=== PATIENT | female | born 1965 ===

== ENCOUNTER 2019-05-19 08:41 | Emergency (ER) | payer OTHER ==
[~2019-05-19] VITALS: Ht 165.1 cm; Wt 74.8 kg
[2019-05-19 09:55] LABS: Influenza A Negative (NEGATIVE); Influenza B Negative (NEGATIVE)
[2019-05-19] MEDS ORDERED: ALBU90OI INH (10:10)
== END 2019-05-19 11:25 | disposition home or self-care (01) ==
LOC: ER 08:41
PROVIDERS: Emergency Medicine
DX: J02.9 Acute pharyngitis, unspecified (principal); F17.200 Nicotine dependence, unspecified, uncomplicated
CPT/HCPCS: 71045; 87804; 99284-25